=== PATIENT | female | born 1985 | race Caucasian/White ===

== ENCOUNTER 2018-11-11 19:07 | Emergency (ER) | payer SELFPAY ==
--- NOTE | 2018-11-11 19:26 | EDM.PDOC ---
ED HPI GENERAL MEDICAL PROBLEM - General Chief Complaint: General Stated Complaint: MEDICAL CLEAR Time Seen by Provider: 11/11/18 19:23 Source of Information: Reports: Patient, Police History Limitations: Reports: No Limitations - History of Present Illness INITIAL COMMENTS - FREE TEXT/NARRATIVE: HISTORY AND PHYSICAL: History of present illness: Patient is a 32-year-old female brought in by superintendent police for medical clearance. She is intoxicated but is fully alert and oriented. She has no medical complaints at this time. Review of systems: As per history of present illness and below otherwise all systems reviewed and negative. Past medical history: As per history of present illness and as reviewed below otherwise noncontributory. Surgical history: As per history of present illness and as reviewed below otherwise noncontributory. Social history: No reported history of drug or alcohol abuse. Family history: As per history of present illness and as reviewed below otherwise noncontributory. Physical exam: General: Patient sitting comfortably in no acute distress and nontoxic appearing HEENT: Atraumatic, normocephalic, pupils reactive, negative for conjunctival pallor or scleral icterus, mucous membranes moist, throat clear, neck supple, nontender, trachea midline. No meningeal signs. Lungs: Clear to auscultation, breath sounds equal bilaterally, chest nontender. Heart: S1S2, regular, negative for clicks, rubs, or overt murmur. Extremities: Atraumatic, negative for cords or calf pain. Neurovascular unremarkable. Neuro: Awake, alert, oriented. Cranial nerves II through XII unremarkable. Cerebellum unremarkable. Motor and sensory unremarkable throughout. Exam nonfocal. Notes: Diagnostics: POC glucose - declined Therapeutics: None Prescriptions: None Impression: Medical clearance for incarceration Plan: Patient medically cleared for incarceration. Definitive disposition and diagnosis as appropriate pending reevaluation and review of above. 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: Musculoskeletal History: Reports: None Neurological History: Reports: None Psychiatric History: Reports: None Endocrine/Metabolic History: Reports: None Hematologic History: Reports: None Immunologic History: Reports: None Oncologic (Cancer) History: Reports: None Dermatologic History: Reports: None - Infectious Disease History Infectious Disease History: Reports: None - Past Surgical History Head Surgeries/Procedures: Reports: None HEENT Surgical History: Reports: None Cardiovascular Surgical History: Reports: None Respiratory Surgical History: Reports: None GI Surgical History: Reports: None Female Surgical History: Reports: None Endocrine Surgical History: Reports: None Neurological Surgical History: Reports: None Musculoskeletal Surgical History: Reports: None Oncologic Surgical History: Reports: None Dermatological Surgical History: Reports: None Social & Family History - Family History Family Medical History: Noncontributory - Tobacco Use Smoking Status *Q: Current Every Day Smoker Years of Tobacco use: 1 Packs/Tins Daily: 1 - Caffeine Use Caffeine Use: Reports: Coffee, Soda - Recreational Drug Use Recreational Drug Use: No ED ROS GENERAL - Review of Systems Review Of Systems: ROS reveals no pertinent complaints other than HPI. ED EXAM, GENERAL - Physical Exam Exam: See Below (see dictation) Course - Vital Signs Last Recorded V/S: Last Vital Signs Temp 97.5 F 11/11/18 19:07 Pulse 92 11/11/18 19:07 Resp 18 11/11/18 19:07 BP 127/83 11/11/18 19:07 Pulse Ox 95 11/11/18 19:07 - Orders/Labs/Meds Orders: Active Orders 24 hr Category Date Time Status Blood Glucose Check, Bedside [RC] ONETIME Care 11/11/18 19:18 Ordered Departure - Departure Time of Disposition: 19:24 Disposition: Home, Self-Care 01 Condition: Good Clinical Impression: Medical clearance for incarceration - Discharge Information Referrals: PCP,None [Primary Care Provider] - - My Orders Last 24 Hours: My Active Orders 11/11/18 19:18 Blood Glucose Check, Bedside [RC] ONETIME - Assessment/Plan Last 24 Hours: My Active Orders 11/11/18 19:18 Blood Glucose Check, Bedside [RC] ONETIME
== END 2018-11-11 19:29 | disposition home or self-care (01) ==
LOC: MW.ED 19:07
DX: F10.929 Alcohol use, unspecified with intoxication, unspecified (principal); F17.210 Nicotine dependence, cigarettes, uncomplicated; Z02.89 Encounter for other administrative examinations; Z79.899 Other long term (current) drug therapy
CPT/HCPCS: 99282; 99283

== ENCOUNTER 2018-12-10 07:53 | Day surgery (SDC) | payer SELFPAY ==
[~2018-12-10 07:53] MED LIST: Dexamethasone 4 MG/ML 5 ML MDV ONE; Midazolam 1 MG/ML 2 ML SDV ONE; Ondansetron 4 MG/2 ML SDV ONE; Propofol 200 MG/20 ML SDV ONE; fentaNYL 250 MCG/5 ML SDV ONE
--- NOTE | 2018-12-10 08:38 | PCM.PREANE ---
Preanesthetic Assessment - Anesthesia/Transfusion/Family Hx Anesthesia History: No Prior Anesthesia Family History of Anesthesia Reaction: No Transfusion History: No Prior Transfusion(s) Type of Transfusion Reactions: Reports: Unknown - Review of Systems General: No Symptoms Pulmonary: No Symptoms Cardiovascular: No Symptoms Gastrointestinal: No Symptoms Neurological: No Symptoms Other: Reports: None - Physical Assessment NPO Status Date: 12/09/18 O2 Sat by Pulse Oximetry: 97 Respiratory Rate: 16 Vital Signs: Last Vital Signs Temp 97.9 F 12/10/18 08:15 Pulse 77 12/10/18 08:15 Resp 16 12/10/18 08:15 BP 123/79 12/10/18 08:15 Pulse Ox 97 12/10/18 08:15 Height: 5 ft 6.25 in Weight: 69.4 kg ASA Class: 1 Mental Status: Alert & Oriented x3 Airway Class: Mallampati = 1 Dentition: Reports: Normal Dentition ROM/Head Extension: Full Lungs: Clear to Auscultation, Normal Respiratory Effort Cardiovascular: Regular Rate, Regular Rhythm - Lab Values: Laboratory Last Values WBC 5.05 K/uL (4.0-11.0) 12/10/18 08:10 RBC 4.60 M/uL (4.30-5.90) 12/10/18 08:10 Hgb 14.2 g/dL (12.0-16.0) 12/10/18 08:10 Hct 41.1 % (36.0-46.0) 12/10/18 08:10 MCV 89.3 fL (80.0-98.0) 12/10/18 08:10 MCH 30.9 pg (27.0-32.0) 12/10/18 08:10 MCHC 34.5 g/dL (31.0-37.0) 12/10/18 08:10 RDW Std Deviation 44.1 fl (28.0-62.0) 12/10/18 08:10 RDW Coeff of Royal 14 % (11.0-15.0) 12/10/18 08:10 Plt Count 278 K/uL (150-400) 12/10/18 08:10 MPV 9.40 fL (7.40-12.00) 12/10/18 08:10 Neut % (Auto) 42.0 % (48.0-80.0) L 12/10/18 08:10 Lymph % (Auto) 45.7 % (16.0-40.0) H 12/10/18 08:10 [place] % (Auto) 7.5 % (0.0-15.0) 12/10/18 08:10 Eos % (Auto) 4.6 % (0.0-7.0) 12/10/18 08:10 Baso % (Auto) 0.2 % (0.0-1.5) 12/10/18 08:10 Neut # (Auto) 2.1 K/uL (1.4-5.7) 12/10/18 08:10 Lymph # (Auto) 2.3 K/uL (0.6-2.4) 12/10/18 08:10 [place] # (Auto) 0.4 K/uL (0.0-0.8) 12/10/18 08:10 Eos # (Auto) 0.2 K/uL (0.0-0.7) 12/10/18 08:10 Baso # (Auto) 0.0 K/uL (0.0-0.1) 12/10/18 08:10 Nucleated RBC % 0.0 /100WBC 12/10/18 08:10 Nucleated RBCs # 0 K/uL 12/10/18 08:10 - Allergies Allergies/Adverse Reactions: Allergies Allergy/AdvReac Type Severity Reaction Status Date / Time No Known Allergies Allergy Verified 12/05/18 15:51 - Anesthesia Plan Pre-Op Medication Ordered: None - Acknowledgements Anesthesia Type Planned: General Anesthesia Pt an Appropriate Candidate for the Planned Anesthesia: Yes Alternatives and Risks of Anesthesia Discussed w Pt/Guardian: Yes Pt/Guardian Understands and Agrees with Anesthesia Plan: Yes Additional Comments: PMH: breast feeding PLAN: [id number] PreAnesthesia Questionnaire - Past Health History Medical/Surgical History: Denies Medical/Surgical History HEENT History: Reports: None Cardiovascular History: Reports: None Respiratory History: Reports: None Gastrointestinal History: Reports: None Genitourinary History: Reports: UTI, Recurrent 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: Musculoskeletal History: Reports: None Neurological History: Reports: None Psychiatric History: Reports: Depression Other Psychiatric History: post depression Endocrine/Metabolic History: Reports: None Hematologic History: Reports: None Immunologic History: Reports: None Oncologic (Cancer) History: Reports: None Dermatologic History: Reports: None - Infectious Disease History Infectious Disease History: Reports: None - Past Surgical History Head Surgeries/Procedures: Reports: None HEENT Surgical History: Reports: None Cardiovascular Surgical History: Reports: None Respiratory Surgical History: Reports: None GI Surgical History: Reports: None Female Surgical History: Reports: None Endocrine Surgical History: Reports: None Neurological Surgical History: Reports: None Musculoskeletal Surgical History: Reports: None Oncologic Surgical History: Reports: None Dermatological Surgical History: Reports: None - SUBSTANCE USE Smoking Status *Q: Light Tobacco Smoker Recreational Drug Use History: No - HOME MEDS Home Medications: Home Meds Acetaminophen [Tylenol] 2 tab PO ASDIRECTED PRN 12/05/18 [History] Escitalopram Oxalate 20 mg PO DAILY 12/05/18 [History] metroNIDAZOLE [Flagyl] 1 tab PO BID 12/05/18 [History] - CURRENT (IN HOUSE) MEDS Current Meds: Current Medications Discontinued Medications Dexamethasone (Dexamethasone) Confirm Administered Dose 20 mg .ROUTE .STK-MED ONE Stop: 12/10/18 07:22 Fentanyl (Sublimaze) Confirm Administered Dose 250 mcg .ROUTE .STK-MED ONE Stop: 12/10/18 07:13 Lidocaine HCl (Xylocaine-Mpf 1%) Confirm Administered Dose 5 mls @ as directed .ROUTE .STK-MED ONE Stop: 12/10/18 07:22 Midazolam HCl (Versed 1 Mg/Ml) Confirm Administered Dose 2 mg .ROUTE .STK-MED ONE Stop: 12/10/18 07:13 Ondansetron HCl (Zofran) Confirm Administered Dose 4 mg .ROUTE .STK-MED ONE Stop: 12/10/18 07:22 Propofol (Diprivan 20 Ml) Confirm Administered Dose 200 mg .ROUTE .STK-MED ONE Stop: 12/10/18 07:13
[2018-12-10] MEDS ORDERED: fentaNYL 100 MCG/2 ML SDV IVPUSH PRN (08:39)
--- NOTE | 2018-12-10 10:49 | PCM.OPNOTE ---
- General Post-Op/Procedure Note Date of Surgery/Procedure: 12/10/18 Operative Procedure(s): Loop electrosurgical excision procedure.LEEP Findings: Area of the biopsies on cervix has healed well. No paracervical nodularities palpated Pre Op Diagnosis: Moderate cervical dysplasia Post-Op Diagnosis: Same Anesthesia Technique: General LMA Primary Surgeon: Chantal Vargas Pathology: LEEP specimen tagged at 12 O'clock and ECC EBL in mLs: 5 Complications: None Condition: Good
[2018-12-10] MEDS ORDERED: Acetaminophen/oxyCODONE 325-5 MG Tab PO PRN (10:52)
--- NOTE | 2018-12-10 11:06 | PCM.POSTAN ---
POST ANESTHESIA ASSESSMENT - MENTAL STATUS Mental Status: Alert, Oriented - RESPIRATORY Respiratory Status: Respiratory Rate WNL, Airway Patent, O2 Saturation Stable - CARDIOVASCULAR CV Status: Pulse Rate WNL, Blood Pressure Stable - GASTROINTESTINAL GI Status: No Symptoms - POST OP HYDRATION Hydration Status: Adequate & Stable
--- NOTE | 2018-12-10 11:48 | PCM48HPAN ---
Post Anesthesia Note - EVALUATION WITHIN 48HRS OF ANESTHETIC Vital Signs in Normal Range: Yes Patient Participated in Evaluation: Yes Respiratory Function Stable: Yes Airway Patent: Yes Cardiovascular Function Stable: Yes Hydration Status Stable: Yes Pain Control Satisfactory: Yes Nausea and Vomiting Control Satisfactory: Yes Mental Status Recovered: Yes Resp Rate: 14
--- NOTE | 2018-12-10 14:16 | OR ---
SURGEON: Chantal Vargas MD DATE OF PROCEDURE: 12/10/2018 PREOPERATIVE DIAGNOSIS: Moderate cervical dysplasia (CIN2). POSTOPERATIVE DIAGNOSIS: Moderate cervical dysplasia (CIN2). PROCEDURE: Cervical loop electrosurgical excision procedure. ANESTHESIA: General LMA. ESTIMATED BLOOD LOSS: Minimal. COMPLICATIONS: None. BRIEF HISTORY: Marlee is a 32-year-old lady who had an abnormal Pap smear during her . At that time, it was ASCUS with positive HPV. She had a colposcopy which was visually administrative representative of CIN1. pap was ASC-H, and colposcopy directed biopsies were consistent with moderate cervical dysplasia. These findings including management options were discussed with the patient that she accepted to proceed with operative procedure in the form of a loop electrosurgical excision procedure. The benefits, alternatives and risks of the procedure were reviewed with her including, but not limited to bleeding, infection, and injury to adjacent structures during the procedure. She was also counseled regarding long-term risk of possible labor/premature rupture of membrane due to shortened cervix/cervical insufficiency. Understanding the risks, she accepted to proceed and appropriate consent was obtained. DESCRIPTION OF PROCEDURE: She was brought to the operating room and induction of general anesthesia was performed without difficulty. She was then placed in dorsal lithotomy position, prepped and draped in the usual sterile fashion for vaginal procedure. Examination under anesthesia revealed an anteverted uterus, approximately 7-week size. No palpable adnexal masses. No palpable parametrial or paracervical nodularities. A coated speculum was then placed into the vagina with good visualization of the cervix achieved. The areas of biopsies from the colposcopy had healed adequately. Paracervical block with 1% lidocaine diluted in 1:100, 000 of epinephrine was done. Thereafter, using a standard technique with loop size of 10 x 10, a standard LEEP was performed. The cervical specimen was removed circumferentially and tagged at 12 o'clock before it was handed off the operating field. An ECC was performed with a curette and collected with Cytobrush. Hemostasis was achieved with cautery ball and Monsel solution. Instruments were removed from the vagina. Instrument, needle, and sponge counts were correct at the end of the procedure. The patient tolerated the procedure well, taken to the recovery room in stable condition. CHANDRIKAV / MODL /[id number] MTDD
== END 2018-12-10 11:58 | disposition home or self-care (01) ==
LOC: MW.SDS 07:53
PROVIDERS: ATTEND Obstetrics & Gynecology
DX: N87.1 Moderate cervical dysplasia (principal); F17.200 Nicotine dependence, unspecified, uncomplicated
CPT/HCPCS: 36415; 57522; 84703; 85025; J1100; J2250; J2405; J2704; J3010; 88305; 88307

== ENCOUNTER 2019-05-16 11:00 | Emergency (ER) | payer SELFPAY ==
--- NOTE | 2019-05-16 11:21 | EDM.PDOC ---
ED HPI GENERAL MEDICAL PROBLEM - General Chief Complaint: SHANK CARRIER Problem Stated Complaint: PREG AND BLEEDING Time Seen by Provider: 05/16/19 11:02 Source of Information: Reports: Patient History Limitations: Reports: No Limitations - History of Present Illness INITIAL COMMENTS - FREE TEXT/NARRATIVE: HISTORY AND PHYSICAL: History of present illness: Patient is a 33-year-old female who presents to the emergency room with complaints of vaginal bleeding in early . She states that she recently had a vaginal delivery in August 2018 (8 months ago) and since then has not had a menstrual period. She took a test at home which was positive a few weeks ago. States yesterday afternoon she started spotting, today "feels like a regular period". Patient denies any fever, chills, headache, change in vision, syncope or near syncope. Denies any chest pain, back pain, shortness of breath or cough. Denies any abdominal pain, nausea, vomiting, diarrhea, constipation or dysuria. Has not noted any blood in urine or stool. Patient has been eating and drinking appropriately. LMP: 2 years ago. P: 2 Review of systems: As per history of present illness and below otherwise all systems reviewed and negative. Past medical history: As per history of present illness and as reviewed below otherwise noncontributory. Surgical history: As per history of present illness and as reviewed below otherwise noncontributory. Social history: See social history for further information Family history: As per history of present illness and as reviewed below otherwise noncontributory. Physical exam: General: Patient is a 33-year-old female, well-developed and well-nourished. Alert and oriented. Nontoxic appearing and in no acute distress. Vital signs are stable and have been reviewed by me. HEENT: Atraumatic, normocephalic, pupils equal and reactive bilaterally, negative for conjunctival pallor or scleral icterus, mucous membranes moist, TMs normal bilaterally, throat clear, neck supple, nontender, trachea midline. No drooling or trismus noted. No meningeal signs. No hot potato voice noted. Lungs: Clear to auscultation, breath sounds equal bilaterally, chest nontender. Heart: S1S2, regular rate and rhythm without overt murmur Abdomen: Soft, nondistended, nontender. Negative for masses or hepatosplenomegaly. Negative for costovertebral tenderness. Pelvis: Stable nontender. Genitourinary: This was done with consent and a glove turner and former at the bedside. External genitalia appears intact. Normal amount of blood noted in the vaginal vault. Cervical os is closed with a small amount of blood trickling from the cervical os. Tolerated examination well. No cervical motion tenderness. Skin: Intact, warm, dry. No lesions or rashes noted. Extremities: Atraumatic, moves all extremities per self without difficulty or deficits. Neurovascular unremarkable. Neuro: Awake, alert, oriented. Cranial nerves II through XII unremarkable. Cerebellum unremarkable. Motor and sensory unremarkable throughout. Exam nonfocal. Notes: Patient reports she has not had a menstrual period in over 2 years. Her previous 2 deliveries were healthy vaginal deliveries without any complications. Had previously seen Dr. Irving at [facility], but not since the of her daughter 8 months ago. Ultrasound shows an abnormal cystic structure within the uterus. No viable is identified. Dr. Lyons, OBGYN on-call, was consulted on this case. She will follow this patient on Sunday and do a repeat quantitative hCG along with a repeat ultrasound. This information was shared with the patient. She will call their office to set up an appointment time. Supportive care measures were reviewed and discussed. Voices understanding and is agreeable to plan of care. Denies any further questions or concerns at this time. Diagnostics: CBC, CMP, AB/Rh, UA, hCGU, quantitative hCG Therapeutics: None Prescription: None Impression: Threatened Plan: 1. Please establish care with an SHANK CARRIER as you are going to need follow-up care and continued monitoring. Dr Pitts at [facility] will order a repeat quantitative HCG and OB ultrasound on Sunday. Please call their office to get the appointment time. 2. Pelvic rest until cleared by your SHANK CARRIER (no tampons, sex, douches, etc...) 3. Return to the ED as needed and as discussed. Definitive disposition and diagnosis as appropriate pending reevaluation and review of above. - Related Data Allergies Allergy/AdvReac Type Severity Reaction Status Date / Time No Known Allergies Allergy Verified 05/16/19 11:22 Home Meds: Home Meds . [No Known Home Meds] 05/16/19 [History] Past Medical History - Past Health History Medical/Surgical History: Denies Medical/Surgical History HEENT History: Reports: None Cardiovascular History: Reports: None Respiratory History: Reports: None Gastrointestinal History: Reports: None Genitourinary History: Reports: UTI, Recurrent SHANK CARRIER History: Reports: Musculoskeletal History: Reports: None Neurological History: Reports: None Psychiatric History: Reports: Depression Other Psychiatric History: post depression Endocrine/Metabolic History: Reports: None Hematologic History: Reports: None Immunologic History: Reports: None Oncologic (Cancer) History: Reports: None Dermatologic History: Reports: None - Infectious Disease History Infectious Disease History: Reports: None - Past Surgical History Head Surgeries/Procedures: Reports: None HEENT Surgical History: Reports: None Cardiovascular Surgical History: Reports: None Respiratory Surgical History: Reports: None GI Surgical History: Reports: None Female Surgical History: Reports: None Endocrine Surgical History: Reports: None Neurological Surgical History: Reports: None Musculoskeletal Surgical History: Reports: None Oncologic Surgical History: Reports: None Dermatological Surgical History: Reports: None Social & Family History - Family History Family Medical History: Noncontributory - Caffeine Use Caffeine Use: Reports: Coffee, Soda ED ROS GENERAL - Review of Systems Review Of Systems: ROS reveals no pertinent complaints other than HPI. ED EXAM - Physical Exam Exam: See Below (See dictation) Course - Vital Signs Last Recorded V/S: Last Vital Signs Temp 97.7 F 05/16/19 11:20 Pulse 70 05/16/19 12:10 Resp 18 05/16/19 12:10 BP 134/72 05/16/19 12:10 Pulse Ox 99 05/16/19 12:10 - Orders/Labs/Meds Labs: Laboratory Tests 05/16/19 05/16/19 05/16/19 Range/Units 11:00 11:00 11:13 WBC 7.22 (4.0-11.0) K/uL RBC 4.47 (4.30-5.90) M/uL Hgb 14.2 (12.0-16.0) g/dL Hct 40.9 (36.0-46.0) % MCV 91.5 (80.0-98.0) fL MCH 31.8 (27.0-32.0) pg MCHC 34.7 (31.0-37.0) g/dL RDW Std Deviation 44.0 (28.0-62.0) fl RDW Coeff of Royal 13 (11.0-15.0) % Plt Count 242 (150-400) K/uL MPV 9.60 (7.40-12.00) fL Neut % (Auto) 58.0 (48.0-80.0) % Lymph % (Auto) 33.7 (16.0-40.0) % Bowman % (Auto) 5.1 (0.0-15.0) % Eos % (Auto) 2.9 (0.0-7.0) % Baso % (Auto) 0.3 (0.0-1.5) % Neut # (Auto) 4.2 (1.4-5.7) K/uL Lymph # (Auto) 2.4 (0.6-2.4) K/uL Bowman # (Auto) 0.4 (0.0-0.8) K/uL Eos # (Auto) 0.2 (0.0-0.7) K/uL Baso # (Auto) 0.0 (0.0-0.1) K/uL Nucleated RBC % 0.0 /100WBC Nucleated RBCs # 0 K/uL Sodium (136-145) mmol/L Potassium (3.5-5.1) mmol/L Chloride (98-107) mmol/L Carbon Dioxide (21.0-32.0) mmol/L BUN (7.0-18.0) mg/dL Creatinine (0.6-1.0) mg/dL Est Cr Clr Drug Dosing mL/min Estimated GFR (MDRD) ml/min Glucose (74-106) mg/dL Calcium (8.5-10.1) mg/dL Total Bilirubin (0.2-1.0) mg/dL AST (15-37) IU/L ALT (14-63) IU/L Alkaline Phosphatase (46-116) U/L Total Protein (6.4-8.2) g/dL Albumin (3.4-5.0) g/dL Globulin (2.6-4.0) g/dL Albumin/Globulin Ratio (0.9-1.6) HCG, Quant mIU/mL Urine Color YELLOW Urine Appearance SLT CLOUDY Urine pH 8.0 (5.0-8.0) Ur Specific Totz 1.015 (1.001-1.035) Urine Protein NEGATIVE (NEGATIVE) mg/dL Urine Glucose (UA) NEGATIVE (NEGATIVE) mg/dL Urine Ketones NEGATIVE (NEGATIVE) mg/dL Urine Occult Blood MODERATE H (NEGATIVE) Urine Nitrite NEGATIVE (NEGATIVE) Urine Bilirubin NEGATIVE (NEGATIVE) Urine Urobilinogen 0.2 (<2.0) EU/dL Ur Leukocyte Esterase NEGATIVE (NEGATIVE) Urine RBC 1-3 (0-2/HPF) Urine WBC 0-2 (0-5/HPF) Ur Epithelial Cells FEW (NONE-FEW) Urine Bacteria RARE (NEGATIVE) Urine Mucus LIGHT (NONE-MOD) Urine HCG, Qual POSITIVE (NEGATIVE) Blood Type 05/16/19 05/16/19 Range/Units 11:13 11:13 WBC (4.0-11.0) K/uL RBC (4.30-5.90) M/uL Hgb (12.0-16.0) g/dL Hct (36.0-46.0) % MCV (80.0-98.0) fL MCH (27.0-32.0) pg MCHC (31.0-37.0) g/dL RDW Std Deviation (28.0-62.0) fl RDW Coeff of Royal (11.0-15.0) % Plt Count (150-400) K/uL MPV (7.40-12.00) fL Neut % (Auto) (48.0-80.0) % Lymph % (Auto) (16.0-40.0) % Bowman % (Auto) (0.0-15.0) % Eos % (Auto) (0.0-7.0) % Baso % (Auto) (0.0-1.5) % Neut # (Auto) (1.4-5.7) K/uL Lymph # (Auto) (0.6-2.4) K/uL Bowman # (Auto) (0.0-0.8) K/uL Eos # (Auto) (0.0-0.7) K/uL Baso # (Auto) (0.0-0.1) K/uL Nucleated RBC % /100WBC Nucleated RBCs # K/uL Sodium 139 (136-145) mmol/L Potassium 3.8 (3.5-5.1) mmol/L Chloride 105 (98-107) mmol/L Carbon Dioxide 26.5 (21.0-32.0) mmol/L BUN 10 (7.0-18.0) mg/dL Creatinine 0.8 (0.6-1.0) mg/dL Est Cr Clr Drug Dosing 100.90 mL/min Estimated GFR (MDRD) > 60.0 ml/min Glucose 92 (74-106) mg/dL Calcium 9.3 (8.5-10.1) mg/dL Total Bilirubin 0.3 (0.2-1.0) mg/dL AST 23 (15-37) IU/L ALT 37 (14-63) IU/L Alkaline Phosphatase 69 (46-116) U/L Total Protein 7.4 (6.4-8.2) g/dL Albumin 4.1 (3.4-5.0) g/dL Globulin 3.3 (2.6-4.0) g/dL Albumin/Globulin Ratio 1.2 (0.9-1.6) HCG, Quant 2973.0 mIU/mL Urine Color Urine Appearance Urine pH (5.0-8.0) Ur Specific Totz (1.001-1.035) Urine Protein (NEGATIVE) mg/dL Urine Glucose (UA) (NEGATIVE) mg/dL Urine Ketones (NEGATIVE) mg/dL Urine Occult Blood (NEGATIVE) Urine Nitrite (NEGATIVE) Urine Bilirubin (NEGATIVE) Urine Urobilinogen (<2.0) EU/dL Ur Leukocyte Esterase (NEGATIVE) Urine RBC (0-2/HPF) Urine WBC (0-5/HPF) Ur Epithelial Cells (NONE-FEW) Urine Bacteria (NEGATIVE) Urine Mucus (NONE-MOD) Urine HCG, Qual (NEGATIVE) Blood Type A POSITIVE Departure - Departure Time of Disposition: 14:38 Disposition: Home, Self-Care 01 Clinical Impression: Threatened - Discharge Information Instructions: Threatened Miscarriage, [id number] Referrals: PCP,Unknown [Primary Care Provider] - Forms: ED Department Discharge Additional Instructions: The following information is given to patients seen in the emergency department who are being discharged to home. This information is to outline your options for follow-up care. We provide all patients seen in our emergency department with a follow-up referral. The need for follow-up, as well as the timing and circumstances, are variable depending upon the specifics of your emergency department visit. If you don't have a primary care physician on staff, we will provide you with a referral. We always advise you to contact your personal physician following an emergency department visit to inform them of the circumstance of the visit and for follow-up with them and/or the need for any referrals to a consulting specialist. The emergency department will also refer you to a specialist when appropriate. This referral assures that you have the opportunity for follow-up care with a specialist. All of these measure are taken in an effort to provide you with optimal care, which includes your follow-up. Under all circumstances we always encourage you to contact your private physician who remains a resource for coordinating your care. When calling for follow-up care, please make the office aware that this follow-up is from your recent emergency room visit. If for any reason you are refused follow-up, please contact the [facility] Emergency Department at and asked to speak to the emergency department charge nurse. [facility] Primary Care: [facility] [address] [place] [id number] [facility] [place] [address] [place] [id number] 1. Please establish care with an SHANK CARRIER as you are going to need follow-up care and continued monitoring. Dr Pitts at [facility] will order a repeat quantitative HCG and OB ultrasound on Sunday. Please call their office to get the appointment time. 2. Pelvic rest until cleared by your SHANK CARRIER (no tampons, sex, douches, etc...) 3. Return to the ED as needed and as discussed.
[2019-05-16 11:59] LABS: CHLORIDE,CL 105 mmol/L (98-107); SODIUM,NA 139 mmol/L (136-145)
--- NOTE | 2019-05-16 14:00 | US ---
HISTORY: Vaginal bleeding. COMPARISON: None. FINDINGS: There is an abnormal cystic structure within the uterus containing nodular echogenic foci the largest cyst measuring 11 mm. A normal pole or yolk sac is not identified. No heart beat or motion detected. The right ovary measures 2.6 x 1.8 x 1.2 cm. The left ovary measures 2.2 x 1.0 x 2.6 cm. Normal appearance of the ovaries. IMPRESSION: Abnormal cystic structure within the uterus. No viable identified. Dictated by Jennifer Warren MD @ May 16 2019 1:52PM Signed by Dr. Jennifer Warren @ May 16 2019 1:58PM
== END 2019-05-16 14:36 | disposition home or self-care (01) ==
LOC: MW.ED 11:00
DX: O20.0 Threatened abortion (principal); Z3A.01 Less than 8 weeks gestation of pregnancy
CPT/HCPCS: 36415; 76801; 76801-26; 80053; 81001; 81025; 84702; 85025; 86900; 86901; 99284-25

== ENCOUNTER 2021-12-08 10:18 | Inpatient (IN) | payer BC ==
[2021-12-08] MEDS ORDERED: Methylergonovine 0.2 MG/1 ML Amp IM PRN (10:55)
[2021-12-08] MEDS ORDERED: Misoprostol 200 MCG Tab PO PRN (10:55)
[2021-12-08] MEDS ORDERED: Sodium Chloride 0.9% 2.5 ML Syringe FLUSH PRN (10:55)
[2021-12-08] MEDS ORDERED: Sodium Chloride 0.9% 20 ML SDV IV PRN (10:55)
[2021-12-08] MEDS ORDERED: Sodium Chloride 0.9% 10 ML Syringe FLUSH PRN (10:55)
[2021-12-08] MEDS ORDERED: Nalbuphine 10 MG/1 ML Vial IVPUSH PRN (10:55)
[2021-12-08] MEDS ORDERED: Tranexamic Acid 1,000 MG in Sodium Chloride 0.9% 100 ML IV PRN (10:55)
[2021-12-08] MEDS ORDERED: Water For Irrigation,Sterile 1,000 ML Container IRR PRN (10:55)
[2021-12-08] MEDS ORDERED: Carboprost Tromethamine 250 MCG/1 ML Amp IM PRN (10:55)
[2021-12-08] MEDS ORDERED: Butorphanol 1 MG/ML SDV IVPUSH PRN (10:55)
[2021-12-08] MEDS ORDERED: Oxytocin/0.9 % Sodium Chloride 30 UNIT/500 ML BAG IV SCH (11:00)
[2021-12-08] MEDS ORDERED: Lactated Ringers 1,000 ML IV SCH (11:00)
[2021-12-08] MEDS ORDERED: Lidocaine 1% 20 ML MDV INJECT PRN (11:13)
[2021-12-08] MEDS ORDERED: Docusate Sodium 100 MG Cap PO PRN (12:10)
[2021-12-08] MEDS ORDERED: Lanolin 100% Cream 7 GM Tube TOP PRN (12:10)
[2021-12-08] MEDS ORDERED: Bisacodyl 10 MG Supp RECTAL PRN (12:10)
[2021-12-08] MEDS ORDERED: Witch Hazel Medicated Pads 40/Jar TOP PRN (12:10)
[2021-12-08] MEDS ORDERED: Benzocaine/Menthol 20%-0.5% Spray 78 GM Cannister TOP PRN (12:10)
[2021-12-08] MEDS ORDERED: Acetaminophen 500 MG Tab PO PRN ×2 (12:10)
[2021-12-08] MEDS ORDERED: Ibuprofen 400 MG Tab PO PRN (12:10)
[2021-12-08 13:36] LABS: BLOOD UREA NITROGEN,BUN 8 mg/dL (7.0-18.0); CARBON DIOXIDE,CO2 20.5 mmol/L (21.0-32.0); CHLORIDE,CL 100 mmol/L (98-107); GLUCOSE RANDOM 84 mg/dL (74-106); SODIUM,NA 136 mmol/L (136-145)
[2021-12-08] MEDS: Ibuprofen 800 MG Tab PO PRN (17:04)
[2021-12-09] MEDS ORDERED: Measles, Mumps & Rubella Vaccine 0.5 ML SDV SUBCUT ONE (08:54)
[2021-12-09] MEDS: Ibuprofen 800 MG Tab PO PRN (18:38)
[2021-12-10] MEDS: Ibuprofen 800 MG Tab PO PRN (17:42)
[2021-12-12 14:07] LABS: C.TRACHOMATIS BY TMA Negative (Negative); N.GONORRHOEAE BY TMA Negative (Negative)
== END 2021-12-10 17:50 | disposition home or self-care (01) | DRG 560 ==
LOC: MW.OBCHECK 10:18 → MW.OB 10:20 → MW.OBCHECK 12:08 → OBSVTOIN 12:10 → MW.OB 12-09 01:29
PROVIDERS: ADMIT Obstetrics & Gynecology; ATTEND Obstetrics & Gynecology
PROC: 10E0XZZ Delivery of Products of Conception, External Approach (ICD-10-PCS; principal; 2021-12-08)
DX: O99.334 Smoking (tobacco) complicating childbirth (principal); U07.1 COVID-19; Z37.0 Single live birth; O98.52 Other viral diseases complicating childbirth; F17.210 Nicotine dependence, cigarettes, uncomplicated; Z3A.35 35 weeks gestation of pregnancy; O60.14X0 Preterm labor third trimester with preterm delivery third trimester, not applicable or unspecified
CPT/HCPCS: 36415; 59020; 59025; 59409; 76815; 76815-26; 80053; 80305-QW; 81003; 82570; 84156; 85014; 85018; 85025; 86592; 86706; 86762; 86803; 86850; 86900; 86901; 87340; 87389; 87491; 87591; 87653; A9270-GY; J2590; J7120

== ENCOUNTER 2024-06-20 05:58 | Emergency (ER) | payer SELFPAY ==
[2024-06-20] MEDS ORDERED: Sodium Chloride 0.9% 2.5 ML Syringe FLUSH PRN (07:26)
[2024-06-20] MEDS ORDERED: Sodium Chloride 0.9% 10 ML Syringe FLUSH PRN (07:26)
[2024-06-20 07:45] LABS: BASOPHILS ABSOLUTE AUTO 0.01 K/uL (0.00-0.20); BASOPHILS PERCENT AUTO 0.1 % (0.0-1.0); EOSINOPHILS PERCENT AUTO 1.4 % (0.0-6.0); HEMATOCRIT 38.7 % (37.0-47.0); HEMOGLOBIN 13.8 g/dL (12.0-16.0); IMMATURE GRAN ABSOLUTE AUTO 0.01 K/uL (0.00-0.05); IMMATURE GRAN PERCENT AUTO 0.1 % (0.0-0.4); LYMPHOCYTES ABSOLUTE AUTO 1.82 K/uL (1.00-4.80); LYMPHOCYTES PERCENT AUTO 26.1 % (24.0-44.0); MEAN CORPUSCULAR HEMOGLOBIN 31.9 pg (28.0-32.0); MEAN CORPUSCULAR HGB CONC 35.7 g/dL (32.0-36.0); MEAN CORPUSCULAR VOLUME 89.4 fL (83.0-99.0); MEAN PLATELET VOLUME 9.1 fL (9.4-12.3); MONOCYTES ABSOLUTE AUTO 0.37 K/uL (0.00-0.80); MONOCYTES PERCENT AUTO 5.3 % (0.0-8.0); NEUTROPHILS ABSOLUTE AUTO 4.66 K/uL (1.80-7.70); PLATELET COUNT,PLT 299 K/uL (150-400); RED BLOOD CELL COUNT 4.33 M/uL (4.10-5.30); WHITE BLOOD CELL COUNT,WBC 6.97 K/uL (3.9-11.3)
[2024-06-20 08:20] LABS: A/G RATIO 1.4 (0.9-1.6); ALANINE AMINOTRANSFERASE,ALT 31 IU/L (14-63); ALBUMIN 4.2 g/dL (3.4-5.0); ALKALINE PHOSPHATASE 74 U/L (46-116); ASPARTATE AMNIOTRANSFERASE,AST 24 IU/L (15-37); BILIRUBIN TOTAL 0.4 mg/dL (0.2-1.0); BLOOD UREA NITROGEN,BUN 9 mg/dL (7.0-18.0); CALCIUM 9.7 mg/dL (8.5-10.1); CARBON DIOXIDE,CO2 28.4 mmol/L (21.0-32.0); CHLORIDE,CL 103 mmol/L (98-107); CREATININE 1.1 mg/dL (0.6-1.0); EST CRCL DRUG DOSING (CG) 64.55 mL/min; ESTIMATED GFR 66 mL/min (>60); GLUCOSE RANDOM 104 mg/dL (74-106); LIPASE 75 U/L (16-77); POTASSIUM,K 3.5 mmol/L (3.5-5.1); PROTEIN TOTAL,TP 7.1 g/dL (6.4-8.2); SODIUM,NA 141 mmol/L (136-145); TSH ULTRASENSITIVE 1.46 uIU/mL (0.36-3.74)
== END 2024-06-20 09:06 | disposition home or self-care (01) ==
LOC: MW.ED 05:58
DX: I10 Essential (primary) hypertension (principal); Z79.899 Other long term (current) drug therapy; Z86.16 Personal history of COVID-19; Z75.8 Other problems related to medical facilities and other health care
CPT/HCPCS: 36415; 80053; 83690; 84443; 84484; 85025; 93005; 99285

== ENCOUNTER 2024-11-17 19:12 | Emergency (ER) | payer SELFPAY | END 2024-11-17 20:35 | disposition home or self-care (01) | LOC: MW.ED 19:12 | DX: B34.9 Viral infection, unspecified (principal); Z79.899 Other long term (current) drug therapy; Z75.8 Other problems related to medical facilities and other health care | CPT/HCPCS: 87428-QW; 99284 ==

== ENCOUNTER 2025-06-01 00:35 | Emergency (ER) | payer SELFPAY | END 2025-06-01 01:05 | LOC: MW.ED 00:35 | DX: Z02.89 Encounter for other administrative examinations (principal); R45.851 Suicidal ideations; F10.10 Alcohol abuse, uncomplicated; F17.200 Nicotine dependence, unspecified, uncomplicated; Z79.899 Other long term (current) drug therapy | CPT/HCPCS: 99283; 99284 ==